=== PATIENT | female | born 1995 | race Caucasian/White ===

== ENCOUNTER 2016-09-25 14:37 | Emergency (ER) | payer SELFPAY ==
[2016-09-25] MEDS ORDERED: PPD test dose* 5 TU/0.1 ML TEST (*USE PPD ORDER SET*) ONE (15:01)
== END 2016-09-25 15:00 | disposition home or self-care (01) ==
LOC: OHEAST 14:37
DX: Z11.1 Encounter for screening for respiratory tuberculosis (principal)
CPT/HCPCS: 99201; G0463